=== PATIENT | female | born 1990 | race Caucasian/White ===

== ENCOUNTER 2022-11-11 21:11 | Emergency (ER) | payer MEDICAID ==
[~2022-11-11] VITALS: Ht 160 cm; Wt 61.2 kg
[2022-11-11 21:35] VITALS: BP 145/90; PULSE 78; RESP 17; TEMP 97.7; O2SAT 97
--- NOTE | 2022-11-11 21:38 | NUR ---
TO LOBBY A/W BED AMBULATORY
--- NOTE | 2022-11-11 21:45 | NUR ---
SEEN AND EXAMINED BY HARRIET
[2022-11-11 21:59] LABS: APPEARANCE,URINE CLOUDY (CLEAR); BILIRUBIN,URINE NEGATIVE (NEGATIVE); BLOOD, URINE 3+ (NEGATIVE); COLOR,URINE YELLOW (YELLOW); LEUKOCYTE ESTERASE ,URINE 3+ (NEGATIVE); NITRITE, URINE NEGATIVE (NEGATIVE); PH,URINE 6.5 (5.0-9.0); UGLUCOSE NEGATIVE (NEGATIVE)
[2022-11-11 22:10] LABS: RBC,URINE 80-100 /HPF (0-5); RED BLOOD CELL CASTS,URINE 0-10 /LPF (None Seen)
[2022-11-11] MEDS ORDERED: CIPR500T4 PO (23:10)
[2022-11-11 23:20] VITALS: BP 119/82; PULSE 80; RESP 17; TEMP 98; O2SAT 99
== END 2022-11-11 23:20 | disposition home or self-care (01) ==
LOC: MED 21:11
DX: N39.0 Urinary tract infection, site not specified (principal); Z79.899 Other long term (current) drug therapy
CPT/HCPCS: 81001; 81025; 87086; 99283

== ENCOUNTER 2023-09-26 12:14 | Emergency (ER) | payer MEDICAID, OTHER ==
[~2023-09-26] VITALS: Ht 160 cm; Wt 61.2 kg
[~2023-09-26 12:14] MED LIST: CIPR500T4 PO
[2023-09-26 12:35] VITALS: BP 120/88; PULSE 89; RESP 18; TEMP 98; O2SAT 100
[2023-09-26 12:59] LABS: APPEARANCE,URINE CLEAR (CLEAR); BILIRUBIN,URINE NEGATIVE (NEGATIVE); BLOOD, URINE 2+ (NEGATIVE); COLOR,URINE YELLOW (YELLOW); LEUKOCYTE ESTERASE ,URINE 3+ (NEGATIVE); NITRITE, URINE NEGATIVE (NEGATIVE); PROTEIN,URINE 2+ (NEGATIVE); UGLUCOSE NEGATIVE (NEGATIVE); UROBILINOGEN,URINE 0.2 EU/dL (0.2 - 1)
[2023-09-26 13:24] LABS: BACTERIA,URINE 10-30 (MOD) /HPF (None Seen); RBC,URINE 11-20 (MOD) /HPF (0-5); SQUAMOUS EPITHELIAL CELL,UR 4-10 (MOD) /LPF (0-3 (FEW)); WBC,URINE 16-25 (MOD) /HPF (0-5)
[2023-09-26 13:25] LABS: FINE GRANULAR CASTS,URINE 0-10 /LPF (None Seen); MUCUS,URINE None Seen /LPF (None Seen); TRICHOMONAS,URINE None Seen /HPF (None Seen); YEAST,URINE None Seen /HPF (None Seen)
[2023-09-26] MEDS ORDERED: cefTRIAXone 1,000 MG VIAL ONE (13:28)
[2023-09-26] MEDS ORDERED: LIDOCAINE MPF 1% 5 ML ONE (13:29)
[2023-09-26] MEDS: KETOROLAC 30 MG/ML VIAL IM ONE (13:31)
[2023-09-26] MEDS: cefTRIAXone 1,000 MG in LIDOCAINE MPF 1% 2.1 ML IM ONE (13:32)
[2023-09-26] MEDS ORDERED: IBUP-2213 PO (13:40)
[2023-09-26] MEDS ORDERED: CEPH-588 PO (13:40)
[2023-09-26] MEDS ORDERED: PHEN-1877 PO (13:40)
[2023-09-26] MEDS: HYDROcodone/APAP 5/325 MG 1 TAB TAB PO ONE (14:28)
[2023-09-26 15:25] VITALS: BP 116/78; PULSE 87; RESP 18; TEMP 98; O2SAT 100
== END 2023-09-26 15:25 | disposition home or self-care (01) ==
LOC: MED 12:14
DX: N39.0 Urinary tract infection, site not specified (principal); Z79.899 Other long term (current) drug therapy
CPT/HCPCS: 81001; 81025; 87086; 87186; 96372; 99284; J0696; J1885; J2001